=== PATIENT | female | born 1940 | race Hispanic/Latino ===

== ENCOUNTER 2019-12-25 14:24 | Outpatient (CLI) | payer MEDICARE ==
--- NOTE | 2019-12-25 15:44 | XRay Report ---
LEFT HIP 3 VIEW(S) INDICATION / CLINICAL INFORMATION: LEFT HIP PAIN COMPARISON: None available. FINDINGS: BONES / JOINT(S): No acute fracture or subluxation. No significant arthritis. SOFT TISSUES: No significant abnormality. ADDITIONAL FINDINGS: None. Signer Name: Jacob Garsia MD Signed: 12/25/2019 3:39 PM Workstation Name: [id number]
== END 2019-12-25 14:25 | disposition home or self-care (01) ==
LOC: SPVIMAG 14:24
PROVIDERS: ATTEND Internal Medicine
DX: M25.552 Pain in left hip (principal)